=== PATIENT | male | born 1995 | race Caucasian/White ===

== ENCOUNTER 2023-04-05 14:57 | Emergency (ER) | payer OTHER ==
[2023-04-05] MEDS ORDERED: ONDANSETRON 4 MG/2 ML VIAL ONE (15:24)
[2023-04-05] MEDS ORDERED: FAMOTIDINE 20 MG/50 ML IVPB 20 MG/50 ML MG IVPB ONE (15:24)
[2023-04-05] MEDS: SODIUM CHLORIDE 0.9% 500 ML INFUS.BAG IV ONE (15:32)
[2023-04-05] MEDS: FAMOTIDINE 20 MG/50 ML IVPB 20 MG/50 ML MG IVPB ONE (15:33)
[2023-04-05] MEDS: ONDANSETRON 4 MG/2 ML VIAL IVPUSH ONE (15:33)
[2023-04-05 15:34] VITALS: BP 108/69; PULSE 87; RESP 17; TEMP 98.3; BMI 20.4
[2023-04-05 15:45] LABS: HEMATOCRIT 44.2 % (35.4-49); HEMOGLOBIN 15.6 G/dL (11.7-16.9); MCH 32.5 pg (25.7-33.7); MCHC 35.3 g/dl (32.0-35.9); MEAN CELL VOLUME 92.1 fl (80-96); MEAN PLT VOLUME 9.3 fl (7.5-11.1); PLATELET COUNT 169.1 10^3/uL (134-434); RDW 13.3 % (11.9-15.9); WHITE BLOOD COUNT 5.4 10^3/uL (4.0-10.8)
[2023-04-05 15:54] LABS: PLATELET ESTIMATE ADEQUATE
[2023-04-05 16:26] LABS: ALBUMIN 4.8 g/dl (3.4-5.0); BILIRUBIN,TOTAL 0.9 mg/dl (0.2-1); CALCIUM 9.8 mg/dl (8.5-10.1); CREATININE 0.8 mg/dl (0.6-1.3); TOT PROT 7.1 g/dl (6.4-8.2)
== END 2023-04-05 17:20 | disposition home or self-care (01) ==
LOC: FER 14:57
PROC: 3E033GC Introduction of Other Therapeutic Substance into Peripheral Vein, Percutaneous Approach (ICD-10-PCS; principal; 2023-04-05)
PROC: 3E033GC Introduction of Other Therapeutic Substance into Peripheral Vein, Percutaneous Approach (ICD-10-PCS; 2023-04-05)
DX: K92.0 Hematemesis (principal); R51.9 Headache, unspecified; E86.0 Dehydration; R63.0 Anorexia
CPT/HCPCS: 36415; 80053; 85027; 99284-25